=== PATIENT | female | born 1995 | race Hispanic/Latino ===

== ENCOUNTER 2021-10-09 18:27 | Emergency (ER) | payer SELFPAY ==
[~2021-10-09] VITALS: Ht 149.9 cm; Wt 58.1 kg
[2021-10-09] MEDS ORDERED: IBUPROFEN 600 MG TAB PO STA (18:51)
[2021-10-09] MEDS ORDERED: IBUPROFEN 600 MG TAB ONE (19:03)
[2021-10-09] MEDS ORDERED: TAMIFLU75 MG PO (19:58)
[2021-10-09] MEDS ORDERED: IBUPROFEN600 MG PO (20:01)
[2021-10-09] MEDS ORDERED: GUAIFEN-CODEINE10 ML PO (20:08)
[2021-10-09] MEDS ORDERED: VENTOLIN HFA18 GM INH (20:17)
== END 2021-10-09 20:54 | disposition home or self-care (01) ==
LOC: FSED 19:00
DX: R50.9 Fever, unspecified (principal); J10.1 Influenza due to other identified influenza virus with other respiratory manifestations; Z20.822 Contact with and (suspected) exposure to COVID-19; B34.9 Viral infection, unspecified
CPT/HCPCS: 87400; 99283; U0002